=== PATIENT | male | born 1965 | race Asian ===

== ENCOUNTER 2020-07-13 04:58 | Inpatient (IN) | payer OTHER ==
--- NOTE | 2020-07-13 05:04 | PDOC ---
Attending Attestation - Resident Resident Name: Hayes Silverio - ED Attending Attestation I have performed the following: I have examined & evaluated the patient, The case was reviewed & discussed with the resident, I agree w/resident's findings & plan - HPI HPI: 07/13/20 06:25 see resident hpi - Physicial Exam PE: 07/13/20 06:25 see resident exam - Medical Decision Making 07/13/20 06:25 54-year-old male with large squamous cell carcinoma, invasive involving the left facial structures status post admission for Klebsiella bacteremia sepsis with PICC line in place Patient currently on ertapenem, sent in initially for dislodged G-tube but found to have a rectal temperature of greater than [address] removed without incident and G-tube replaced at the bed side Sepsis evaluation initiated, will sign case out to dayshift pending admission Discharge - Discharge Information Problems reviewed: Yes Clinical Impression/Diagnosis: PEG (percutaneous endoscopic gastrostomy) adjustment/replacement/removal, Sepsis Condition: Fair - Follow up/Referral Referrals: Jared López MD [Primary Care Provider] - - Patient Discharge Instructions - Post Discharge Activity
[2020-07-13] MEDS ORDERED: SODIUM CHLORIDE IV ONE (05:29)
[2020-07-13] MEDS ORDERED: CEFEPIME HCL/D5W 1 GM/50 ML BAG IVPB ONE (05:30)
[2020-07-13] MEDS ORDERED: VANCOMYCIN 1 GM in D5W (PRE-DOCKED) 1,000 MG/250 ML IVPB ONE (05:30)
[2020-07-13] MEDS ORDERED: ACETAMINOPHEN 1000 MG/100 ML VIAL (NON FORMULARY) IVPB ONE (05:33)
--- NOTE | 2020-07-13 05:48 | PDOC ---
History of Present Illness - General Chief Complaint: G Tube Problem Stated Complaint: PEG TUBE OUT Time Seen by Provider: 07/13/20 05:01 History Source: [facility] Exam Limitations: Clinical Condition - History of Present Illness Initial Comments: 07/13/20 05:34 54M PMH SCC complicated by open wound of the left face, sepsis currently w/ PICC on Ertapenem (started on 06/26/20 due to continue through 07/18/20), recently discharged from [facility] to [facility] 07/07/20, trach'd BIBEMS to this ED after pt pulled out PEG tube (18Fr) placed and confirmed on 03/21/20. LA placed nails into stoma as placeholder. Hx per EMS report and accompanying documents. Per EMS report, normal SBP ranging from 75-90s; currently SBP 76 with 1L NS bolus en route. Pt has chronic bleeding/oozing around the mouth. Pt is nonverbal and unable to provide information. Found to be febrile to 101F rectally on triage. Full code. NKA. Past History - Medical History Allergies/Adverse Reactions: Allergies Allergy/AdvReac Type Severity Reaction Status Date / Time No Known Allergies Allergy Verified 07/13/20 05:16 Home Medications: Ambulatory Orders Acetaminophen 325 mg PO QID PRN 07/13/20 Cholecalciferol (Vitamin D3) [Vitamin D3 -] 2.5 ml GT DAILY 07/13/20 Ertapenem Sodium [Invanz] 1 gm IJ DAILY 07/13/20 Erythromycin 0.5% Eye Ointment [Erythromycin 0.5% Eye Ointment -] 1 applic OS Q4 H 07/13/20 Famotidine [Pepcid] 2 ml PO Q12H 07/13/20 Heparin - 5,000 units IJ Q8H 07/13/20 Ipratropium 0.02% Nebulizer [Atrovent 0.02% Nebulizer -] 2.5 ml NEB Q6H 07/13/20 Metoprolol Tartrate 25 mg PO Q6H 07/13/20 Miconazole Nitrate [Miconazole Nitrate -] 1 applic TP BID 07/13/20 Nystatin Cream [Mycostatin Cream -] 1 applic TP BID 07/13/20 Oxycodone HCl [Roxicodone] 1 tablet PO Q8H 07/13/20 metroNIDAZOLE 0.75% GEL [Metrogel 0.75% Gel -] 1 appful TP Q12H 07/13/20 oxyCODONE HCL [Oxycodone HCl] 5 ml PO QID 07/13/20 - Psycho-Social/Smoking History Smoking History: Unknown if ever smoked - Substance Abuse Hx (Audit-C & DAST Scrn) How often the patient has a drink containing alcohol: Never Score: In Men: 4 or > Positive; In Women: 3 or > Positive: 0 Screen Result (Pos requires Nsg. Audit-10AR): Negative In the last yr the pt used illegal drug/Rx for NonMed reason: No Score: Yes response is considered Positive: 0 Screen Result (Positive result requires Nsg. DAST-10): Negative Review of Systems - Review of Systems Able to Perform ROS?: No *Physical Exam - Vital Signs Last Vital Signs Temp Pulse Resp BP Pulse Ox 101.0 F H 95 H 18 79/58 L 100 07/13/20 04:59 07/13/20 04:59 07/13/20 04:59 07/13/20 04:59 07/13/20 04:59 - Physical Exam GEN: Ill appearing, awake HEENT: Large mass involving the left face and left eye covered with abd pain. Oozing of blood around the mouth. Supple neck w/ FROM. CV: S1/S2 LUNG: mechanically ventilated GI: Nails catheter inserted into PEG stoma. nondistended MSK: contractures of the UE and LEs SKIN: Warm, dry, no rashes appreciated. PSYCH: awake, nonverbal, does not follow commands NEURO: moving arms. ED Treatment Course - LABORATORY CBC & Chemistry Diagram: 07/14/20 05:30 07/14/20 05:30 - RADIOLOGY Radiology Studies Ordered: Category Date Time Status ABDOMEN-KUB FLAT PLATE [RAD] Stat Radiology 07/13/20 05:32 Ordered CHEST X-RAY PORTABLE* [RAD] Stat Radiology 07/13/20 05:29 Ordered Medical Decision Making - Medical Decision Making 54M PMH SCC of head complicated by left face open wound, sepsis w/ PICC on ertapenum BIBEMS for PEG displacement. Trach'd, PEG'd. sepsis w/u 18Fr PEG replaced AXR to confirm PEG placement broadening abx coverage from ertepenam to vanc. and cefepime ICU c/s 07/13/20 06:36 EKG 06:35 HR 87 NSR intervals and axis nl, biphasic T wave in V2, TWI V1 labs reviewed Discharge - Discharge Information Problems reviewed: Yes Clinical Impression/Diagnosis: PEG (percutaneous endoscopic gastrostomy) adjustment/replacement/removal, Sepsis, Lactic acidosis, Squamous cell carcinoma, Hypernatremia Condition: Fair Disposition: OTHER HEALTHCARE NOT DEFINED - Admission Yes - Follow up/Referral - Patient Discharge Instructions - Post Discharge Activity
[2020-07-13] MEDS ORDERED: ACETAMINOPHEN INJECTION 100 ML IVPB ONE (05:53)
[2020-07-13] MEDS ORDERED: VANCOMYCIN 1 GRAM (PRE-DOCKED) 1,000 MG/250 ML BAG IVPB ONE (05:53)
[2020-07-13] MEDS ORDERED: CEFEPIME 1 GM/100 ML BAG IVPB ONE (05:54)
[2020-07-13 06:14] LABS: ACTIVATED PTT 29.1 SECONDS (25.2-36.5)
[2020-07-13 06:22] LABS: ALBUMIN 1.2 g/dl (3.4-5.0); BILIRUBIN,TOTAL 0.2 mg/dL (0.2-1); BLOOD UREA NITROGEN 48.8 mg/dL (7-18); CALCIUM 9.1 mg/dL (8.5-10.1); CREATININE 1.5 mg/dL (0.55-1.3); POTASSIUM 4.9 mmol/L (3.5-5.1); TOT PROT 7.6 g/dl (6.4-8.2)
[2020-07-13] MEDS ORDERED: SODIUM CHLORIDE 0.45% 1,000 ML IV SCH ×3 (06:30→08:30)
[2020-07-13 06:32] LABS: BASO % 0.6 % (0-2.0); EOS % 4.7 % (0-4.5); HEMATOCRIT 26.9 % (35.4-49); HEMOGLOBIN 8.6 GM/dL (11.7-16.9); LYMPH % 7.9 % (8-40); MCH 28.4 pg (25.7-33.7); MCHC 31.9 g/dl (32.0-35.9); MEAN CELL VOLUME 89.1 fl (80-96); MEAN PLT VOLUME 9.4 fl (7.5-11.1); MONO % 8.9 % (3.8-10.2); NEUT % 77.9 % (42.8-82.8); PLATELET COUNT 321 K/MM3 (134-434); RBC 3.02 M/mm3 (4.00-5.60); WHITE BLOOD COUNT 11.4 K/mm3 (4.0-10.0)
[2020-07-13 06:38] LABS: EPI CELLS 21 /uL (0-25.1); HYALINE CASTS 2 /uL (0-3.1); PH,URINE 8.5 (5.0-8.0); URINE APPEARANCE CLEAR; URINE BACTERIA 7 /uL (0-1359); URINE BILIRUBIN NEGATIVE (NEGATIVE); URINE COLOR YELLOW; URINE GLUCOSE (UA) NEGATIVE (NEGATIVE); URINE KETONE NEGATIVE (NEGATIVE); URINE LEUK ESTERASE NEGATIVE (NEGATIVE); URINE NITRITE NEGATIVE (NEGATIVE); URINE PROTEIN 2+ (NEGATIVE); URINE RBC 8 /uL (0-23.9); URINE UROBILINOGEN 0.2 mg/dL (0.2-1.0); URINE WBC 20 /uL (0-25.8)
[2020-07-13 07:10] LABS: INR 1.09 (0.83-1.09); PROTHROMBIN TIME (PATIENT) 12.9 SEC (9.7-13.0)
--- NOTE | 2020-07-13 07:53 | PDOC ---
*Physical Exam - Vital Signs Last Vital Signs Temp Pulse Resp BP Pulse Ox 101.0 F H 86 17 84/62 L 99 07/13/20 04:59 07/13/20 06:40 07/13/20 06:40 07/13/20 06:40 07/13/20 07:15 ED Treatment Course - LABORATORY CBC & Chemistry Diagram: 07/13/20 05:40 07/13/20 05:40 - ADDITIONAL ORDERS Additional order review: Laboratory Results 07/13/20 07/13/20 07/13/20 06:20 05:40 05:40 WBC RBC Hgb Hct MCV MCH MCHC RDW Plt Count MPV Absolute Neuts (auto) Neutrophils % Lymphocytes % Monocytes % Eosinophils % Basophils % Nucleated RBC % PT with INR INR PTT (Actin FS) Sodium 153 H Potassium 4.9 Chloride 123 H Carbon Dioxide 26 Anion Gap 4 L BUN 48.8 H Creatinine 1.5 H Est GFR (CKD-EPI)AfAm 59.88 Est GFR (CKD-EPI)NonAf 51.67 Random Glucose 98 Lactic Acid 2.3 H* Calcium 9.1 Total Bilirubin 0.2 AST 21 ALT 16 Alkaline Phosphatase 145 H Troponin I 0.04 Total Protein 7.6 Albumin 1.2 L Urine Color Yellow Urine Appearance Clear Urine pH 8.5 H Ur Specific [place] 1.015 Urine Protein 2+ H Urine Glucose (UA) Negative Urine Ketones Negative Urine Blood Negative Urine Nitrite Negative Urine Bilirubin Negative Urine Urobilinogen 0.2 Ur Leukocyte Esterase Negative Urine WBC (Auto) 20 Urine RBC (Auto) 8 Urine Casts (Auto) 2 U Epithel Cells (Auto) 21 Urine Bacteria (Auto) 7 07/13/20 07/13/20 05:40 05:40 WBC 11.4 H RBC 3.02 L Hgb 8.6 L Hct 26.9 L MCV 89.1 MCH 28.4 MCHC 31.9 L RDW 17.0 H Plt Count 321 MPV 9.4 Absolute Neuts (auto) 8.9 H Neutrophils % 77.9 Lymphocytes % 7.9 L Monocytes % 8.9 Eosinophils % 4.7 H Basophils % 0.6 Nucleated RBC % 0 PT with INR 12.90 INR 1.09 PTT (Actin FS) 29.1 Sodium Potassium Chloride Carbon Dioxide Anion Gap BUN Creatinine Est GFR (CKD-EPI)AfAm Est GFR (CKD-EPI)NonAf Random Glucose Lactic Acid Calcium Total Bilirubin AST ALT Alkaline Phosphatase Troponin I Total Protein Albumin Urine Color Urine Appearance Urine pH Ur Specific [place] Urine Protein Urine Glucose (UA) Urine Ketones Urine Blood Urine Nitrite Urine Bilirubin Urine Urobilinogen Ur Leukocyte Esterase Urine WBC (Auto) Urine RBC (Auto) Urine Casts (Auto) U Epithel Cells (Auto) Urine Bacteria (Auto) 07/13/20 05:40 RBC 3.02 L MCV 89.1 MCHC 31.9 L RDW 17.0 H MPV 9.4 Neutrophils % 77.9 Lymphocytes % 7.9 L Monocytes % 8.9 Eosinophils % 4.7 H Basophils % 0.6 - Medications Given in the ED: ED Medications Discontinued Medications Generic Name Dose Route Start Last Admin Trade Name Freq PRN Reason Stop Dose Admin Acetaminophen 1,000 mg 07/13/20 05:33 07/13/20 06:10 Ofirmev Injection - IVPB 07/13/20 05:34 1,000 mg ONCE ONE Administration Sodium Chloride 1,053 mls @ 526.5 mls/hr 07/13/20 05:29 07/13/20 06:30 Normal Saline - 30 ml/kg infuse over 2 hr (1053 ml) 07/13/20 07:28 Not Given IV ONCE ONE Cefepime HCl 1 gm in 50 mls @ 100 mls/hr 07/13/20 05:30 07/13/20 06:15 Maxipime 1 Gm Premix Ivpb IVPB 07/13/20 05:59 100 mls/hr ONCE ONE Administration Vancomycin HCl 1,000 mg 07/13/20 05:30 07/13/20 07:22 Vancomycin (Pre-Docked) IVPB 07/13/20 05:31 1,000 mg ONCE ONE Administration Protocol Medical Decision Making - Medical Decision Making 07/13/20 07:52 Vital Signs Temp Pulse Resp BP Pulse Ox 101.0 F H 86 17 84/62 L 99 07/13/20 04:59 07/13/20 06:40 07/13/20 06:40 07/13/20 06:40 07/13/20 07:[address] pt signed out [address] Dr Delgado, at 7AM pending ICU eval in summary, 54M PMH SCC complicated by open wound of the left face, sepsis currently w/ PICC on Ertapenem (started on 06/26/20 due to continue through 07/18/20), recently discharged from [facility] to [facility] 07/07/20, trach'd BIBEMS to this ED after pt pulled out PEG tube (18Fr) placed and confirmed on 03/21/20. Per EMS report, normal SBP ranging from 75-90s; currently SBP 76 with 1L NS bolus en route. Pt has chronic bleeding/oozing around the mouth. Pt is nonverbal and unable to provide information. Found to be febrile to 101F rectally on triage. Full code. labs and lytes with hyponatremia, RAJAT dehydration on 2nd liter of fluids 1/2NS (s/p 1L with EMS). BP still hypotensive IV cefepime and vancomycin for empiric coverage severe sepsis with lactic acidosis 2.3, will recheck after fluids 1/2 normal saline tylenol for fever, recheck. AXR done, confirmed placement of the G tube. ICU bed for close monitoring, septic shock, IV abx administerred full code status. admit to Dr López, spoke over the phone regarding care, impression and plan and higher level of care. 07/13/20 07:53 07/13/20 08:28 Discharge - Discharge Information Problems reviewed: Yes Clinical Impression/Diagnosis: PEG (percutaneous endoscopic gastrostomy) adjustment/replacement/removal, Sepsis, Lactic acidosis, Squamous cell carcinoma, Hypernatremia Condition: Fair - Admission Yes - Follow up/Referral - Patient Discharge Instructions - Post Discharge Activity
[2020-07-13] MEDS ORDERED: ACETAMINOPHEN 650 MG/20.3 ML ORAL SOLUTION (CUPS) PO PRN (08:08)
[2020-07-13] MEDS ORDERED: LACTATED RINGERS SOLUTION 1,000 ML/1,000 ML INFUS.BAG IV SCH (08:30)
[2020-07-13] MEDS: SODIUM CHLORIDE 0.45% 1,000 ML IV SCH (08:42)
--- NOTE | 2020-07-13 09:09 | CONSULT ---
Consultation: REQUESTING PROVIDER: CONSULT REQUEST: We have been asked to medically evaluate this patient for ICU admission HISTORY OF PRESENT ILLNESS: HPI collected from [facility] records and adira paperwork: 54-year-old male with PMHx of RA & large invasive squamous cell carcinoma, involving the left facial structures s/p admission ([facility]) for Klebsiella bacteremia sepsis with PICC line in place (07/02/20) currently on ertapenem. S/p trach & peg 02/2020. Patient was originally being brought to ED for dislodged G-tube but found to have a rectal temperature of greater than 101, and hypotension. Nails catheter in place removed without incident and G-tube replaced at the bedside in ED. Patient currently awake but non responsive, but that's his baseline. REVIEW OF SYSTEMS: Unable to assess CONSTITUTIONAL: Absent: fever, chills, diaphoresis, generalized weakness, malaise, loss of appetite, weight change HEENT: Absent: rhinorrhea, nasal congestion, throat pain, throat swelling, difficulty swallowing, mouth swelling, ear pain, eye pain, visual changes CARDIOVASCULAR: Absent: chest pain, syncope, palpitations, irregular heart rate, lightheadedness, peripheral edema RESPIRATORY: Absent: cough, shortness of breath, dyspnea with exertion, orthopnea, wheezing, stridor, hemoptysis GASTROINTESTINAL: Absent: abdominal pain, abdominal distension, nausea, vomiting, diarrhea, constipation, melena, hematochezia GENITOURINARY: Absent: dysuria, frequency, urgency, hesitancy, hematuria, flank pain, genital pain MUSCULOSKELETAL: Absent: myalgia, arthralgia, joint swelling, back pain, neck pain SKIN: Absent: rash, itching, pallor HEMATOLOGIC/IMMUNOLOGIC: Absent: easy bleeding, easy bruising, lymphadenopathy, frequent infections ENDOCRINE: Absent: unexplained weight gain, unexplained weight loss, heat intolerance, cold intolerance NEUROLOGIC: Absent: headache, focal weakness or paresthesias, dizziness, unsteady gait, seizure, mental status changes, bladder or bowel incontinence PSYCHIATRIC: Absent: anxiety, depression, suicidal or homicidal ideation, hallucinations. PHYSICAL EXAMINATION Vital Signs - 24 hr 07/13/20 07/13/20 07/13/20 04:59 05:30 05:54 Temperature 101.0 F H Pulse Rate 95 H Pulse Rate [ Left Radial] Respiratory 18 24 H Rate Blood Pressure 79/58 L Blood Pressure [Right Arm] O2 Sat by Pulse 100 100 100 Oximetry (%) 07/13/20 07/13/20 07/13/20 06:40 07:15 08:47 Temperature Pulse Rate Pulse Rate [ 86 74 Left Radial] Respiratory 17 Rate Blood Pressure Blood Pressure 84/62 L 95/63 [Right Arm] O2 Sat by Pulse 99 99 99 Oximetry (%) GENERAL: Awake, no oriented, non responsive/nonverbal HEAD: Normal with no signs of trauma. EYES: PERRL ENT: Large facial lesion encompassing almost entire left side of face with blood NECK: tach in place LUNGS: on ventilator, harsh inhalation breath sounds appreciated HEART: RRR ABDOMEN: Soft, peg in place, emaciated MUSCULOSKELETAL: extremely emaciated EXTREMITIES: muscle wasting, contracted NEUROLOGICAL: unable to fully assess SKIN: no rashes or lesions noted. Laboratory Results - last 24 hr 07/13/20 07/13/20 07/13/20 05:40 05:40 05:40 WBC 11.4 H RBC 3.02 L Hgb 8.6 L Hct 26.9 L MCV 89.1 MCH 28.4 MCHC 31.9 L RDW 17.0 H Plt Count 321 MPV 9.4 Absolute Neuts (auto) 8.9 H Neutrophils % 77.9 Lymphocytes % 7.9 L Monocytes % 8.9 Eosinophils % 4.7 H Basophils % 0.6 Nucleated RBC % 0 PT with INR 12.90 INR 1.09 PTT (Actin FS) 29.1 Sodium 153 H Potassium 4.9 Chloride 123 H Carbon Dioxide 26 Anion Gap 4 L BUN 48.8 H Creatinine 1.5 H Est GFR (CKD-EPI)AfAm 59.88 Est GFR (CKD-EPI)NonAf 51.67 Random Glucose 98 Lactic Acid Calcium 9.1 Total Bilirubin 0.2 AST 21 ALT 16 Alkaline Phosphatase 145 H Troponin I 0.04 Total Protein 7.6 Albumin 1.2 L Urine Color Urine Appearance Urine pH Ur Specific [place] Urine Protein Urine Glucose (UA) Urine Ketones Urine Blood Urine Nitrite Urine Bilirubin Urine Urobilinogen Ur Leukocyte Esterase Urine WBC (Auto) Urine RBC (Auto) Urine Casts (Auto) U Epithel Cells (Auto) Urine Bacteria (Auto) 07/13/20 07/13/20 05:40 06:20 WBC RBC Hgb Hct MCV MCH MCHC RDW Plt Count MPV Absolute Neuts (auto) Neutrophils % Lymphocytes % Monocytes % Eosinophils % Basophils % Nucleated RBC % PT with INR INR PTT (Actin FS) Sodium Potassium Chloride Carbon Dioxide Anion Gap BUN Creatinine Est GFR (CKD-EPI)AfAm Est GFR (CKD-EPI)NonAf Random Glucose Lactic Acid 2.3 H* Calcium Total Bilirubin AST ALT Alkaline Phosphatase Troponin I Total Protein Albumin Urine Color Yellow Urine Appearance Clear Urine pH 8.5 H Ur Specific [place] 1.015 Urine Protein 2+ H Urine Glucose (UA) Negative Urine Ketones Negative Urine Blood Negative Urine Nitrite Negative Urine Bilirubin Negative Urine Urobilinogen 0.2 Ur Leukocyte Esterase Negative Urine WBC (Auto) 20 Urine RBC (Auto) 8 Urine Casts (Auto) 2 U Epithel Cells (Auto) 21 Urine Bacteria (Auto) 7 Active Medications Generic Name Dose Route Start Last Admin Trade Name Freq PRN Reason Stop Dose Admin Acetaminophen 650 mg 07/13/20 08:08 Tylenol Oral Solution - PO Q4H PRN FEVER Chlorhexidine Gluconate 1 applic 07/13/20 22:00 Hibiclens For Decolonization - TP HS SHARLA Heparin Sodium (Porcine) 5,000 unit 07/13/20 10:00 Heparin - SQ BID SHARLA Sodium Chloride 1,000 mls @ 125 mls/hr 07/13/20 08:31 07/13/20 08:42 1/2 Normal Saline IV 125 mls/hr ASDIR SHARLA Administration Mupirocin 1 applic 07/13/20 10:00 Bactroban Ointment (For Decolonization) - NS 07/18/20 09:59 BID SHARLA CXR: A single view of the chest has been submitted. Since 09/04/2017, the patient is rotated to the left. There is a left patchy infiltrate, prominent mediastinum, tracheostomy tube and left subclavian line with tip in the atrium heading toward the IVC. There is no sign of a pneumothorax. The right lung is clear. The angles are sharp. The bones and soft tissues are intact. Correlation recommended. ASSESSMENT/PLAN: 54-year-old male with PMHx of RA & large invasive squamous cell carcinoma, presented to the ED with dislodged peg tube, was also found to be hypotensive and febrile. Admitted to ICU for septic shock, likely 2/2 infection of facial wound/SCC, vs other infectious causes (picc, nails, trach, peg) Neuro - awake - baseline nonverbal Pulm - possible L patchy infiltrate, likely 2/2 PNA - sputum cultures - give atbx coverage for HAP in ED - on ventilator - maintain sat > 93% Cardio - hypotensive, patient baseline 90/60s - getting IVF - EF 55-60 % (02/2020) Heme/Onc - hx stage 4 oral cavily SCC involving L orbit s/p IR embolization at [facility] s/p multi drug chemo s/p palliative radiation in March medical records in chart - hx anemia ID - picc line currently on ertapenem - 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 Phelps consulted - monitor I&Os GI - peg dislodged and replaced in ED FEN - monitor and replete electrolytes - IVF - NPO for now DVT PPX - Sq heparin TID GI PPX - protonix iv daily Visit type - Emergency Visit Emergency Visit: Yes ED Registration Date: 07/13/20 Care time: The patient presented to the Emergency Department on the above date and was hospitalized for further evaluation of their emergent condition. - New Patient This patient is new to me today: Yes Date on this admission: 07/13/20 - Critical Care Critical Care patient: Yes Total Critical Care Time (in minutes): 36 Critical Care Statement: The care of this patient involved high complexity decision making to prevent further life threatening deterioration of the patient's condition and/or to evaluate & treat vital organ system(s) failure or risk of failure. ATTENDING PHYSICIAN STATEMENT I saw and evaluated the patient. I reviewed the resident's note and discussed the case with the resident. I agree with the resident's findings and plan as documented. SUBJECTIVE: OBJECTIVE: ASSESSMENT AND PLAN:
--- NOTE | 2020-07-13 09:22 | CONSULT ---
Consult Consult Specialty:: Nephrology Reason for Consultation:: RAJAT and hypernatremia - History of Present Illness Chief Complaint: sent in for dislodged g-tube History of Present Illness: Pt is a 54 year old man with pmhx of large invasive squamous cell ca involving his left face who was sent in for dislodged g-tube. He was found to have elevated manager action and sodium. He is awake but not interactive. He was recently treated for Klebsiell abactermia on NYP. I saw the patient with the ICU team at bedside. - History Source History Provided By: Medical Record - Past Medical History Pulmonary: Yes: Other (chronic resp failure) Heme/Onc: Yes: Other (squamous cell ca) - Smoking History Smoking history: Unknown if ever smoked Home Medications - Allergies Allergies/Adverse Reactions: Allergies Allergy/AdvReac Type Severity Reaction Status Date / Time No Known Allergies Allergy Verified 07/13/20 05:16 - Home Medications Home Medications: Ambulatory Orders Acetaminophen 325 mg PO QID PRN 07/13/20 Cholecalciferol (Vitamin D3) [Vitamin D3 -] 2.5 ml GT DAILY 07/13/20 Ertapenem Sodium [Invanz] 1 gm IJ DAILY 07/13/20 Erythromycin 0.5% Eye Ointment [Erythromycin 0.5% Eye Ointment -] 1 applic OS Q4H 07/13/20 Famotidine [Pepcid] 2 ml PO Q12H 07/13/20 Heparin - 5,000 units IJ Q8H 07/13/20 Ipratropium 0.02% Nebulizer [Atrovent 0.02% Nebulizer -] 2.5 ml NEB Q6H 07/13/20 Metoprolol Tartrate 25 mg PO Q6H 07/13/20 Miconazole Nitrate [Miconazole Nitrate -] 1 applic TP BID 07/13/20 Nystatin Cream [Mycostatin Cream -] 1 applic TP BID 07/13/20 Oxycodone HCl [Roxicodone] 1 tablet PO Q8H 07/13/20 metroNIDAZOLE 0.75% GEL [Metrogel 0.75% Gel -] 1 appful TP Q12H 07/13/20 oxyCODONE HCL [Oxycodone HCl] 5 ml PO QID 07/13/20 Family Medical History Family History: Unable to Obtain Review of Systems Unable to obtain ROS, reason: not verbal Physical Exam Vital Signs: Vital Signs Temperature 101.0 F H 07/13/20 04:59 Pulse Rate 74 07/13/20 08:47 Respiratory Rate 17 07/13/20 06:40 Blood Pressure 95/63 07/13/20 08:47 O2 Sat by Pulse Oximetry (%) 99 07/13/20 08:47 Constitutional: Yes: Calm, Cachectic HENT: Yes: Other (left face invasive squamous call ca) Respiratory: Yes: Mechanically Ventilated Gastrointestinal: Yes: Soft. No: Other (peg) Renal/: Yes: Carrizales Present Musculoskeletal: Yes: Muscle Weakness Neurological: Yes: Other (awake but non responsive) Labs: CBC, BMP 07/13/20 05:40 07/13/20 05:40 Imaging - Results Chest X-ray: Report Reviewed Problem List - Problems (1) Bacteremia due to Klebsiella pneumoniae Code(s): R78.81 - BACTEREMIA; B96.1 - KLEBSIELLA PNEUMONIAE THE CAUSE OF DISEASES CLASSD [id number] (2) Hypernatremia Code(s): E87.0 - HYPEROSMOLALITY AND HYPERNATREMIA (3) PEG (percutaneous endoscopic gastrostomy) adjustment/replacement/removal Code(s): Z43.1 - ENCOUNTER FOR ATTENTION TO GASTROSTOMY (4) Squamous cell carcinoma Code(s): LKE4541 - Assessment/Plan Current Medications Generic Name Dose Route Start Last Admin Trade Name Freq PRN Reason Stop Dose Admin Acetaminophen 650 mg 07/13/20 08:08 Tylenol Oral Solution - PO Q4H PRN FEVER Chlorhexidine Gluconate 1 applic 07/13/20 22:00 Hibiclens For Decolonization - TP HS SHARLA Heparin Sodium (Porcine) 5,000 unit 07/13/20 10:00 Heparin - SQ BID SHARLA Sodium Chloride 1,000 mls @ 125 mls/hr 07/13/20 08:31 07/13/20 08:42 1/2 Normal Saline IV 125 mls/hr ASDIR SHARLA Administration Mupirocin 1 applic 07/13/20 10:00 Bactroban Ointment (For Decolonization) - NS 07/18/20 09:59 BID SHARLA Impression 1. rajat 2. hypernatremia 3. recent kleb bacteremia 4. squamous cell cancer 5. lactic acidosis 6. resp failure on trache Plan - cont 1/2 ns - follow repeat labs - abx per medical team - cont vent support - discussed with ICU team at bedside - discuss GOC with family - follow urine lytes and manager action
--- NOTE | 2020-07-13 09:37 | CON.ID ---
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- just discharged on 07/08 from [facility] to the [place]- sent to ED for disclodged gt tube, found to have rectal temp of 101 PMH per discharge from [facility] cancer- s/p 2 cycles chem last 03/18 didnot tolerate, felt by onc not to be a candidate for further cancer directed therapy repeat head and neck ct no significant change but with extensive invasion of l eft orbit and jawline s/p IR embolizatin of extra carotid branch (profuse tumor bleeding), s/p palli ative RT recurrent infection / pneumonia (MSSA, Citrobacter, Acinetobacter) anemia recent MDR klebsiella bacteremiia felt to be secondary to picc line (removed and replaced)-picc replaced on 07/02 -to continue ertapenem until 07/18 was in septic shock there requiring pressors for several days nails catheter and GT replaced in the ED trach to vent - History Source History Provided By: Medical Record Limitations to Obtaining History: Clinical Condition - Past Medical History Rheumatology: Yes: Rheumatoid Arthritis - Smoking History Smoking history: Unknown if ever smoked - Social History Usual Living Arrangement: Jail ADL: Support Services History of Recent Travel: No Home Medications - Allergies Allergies/Adverse Reactions: Allergies Allergy/AdvReac Type Severity Reaction Status Date / Time No Known Allergies Allergy Verified 07/13/20 05:16 - Home Medications Home Medications: Ambulatory Orders Acetaminophen 325 mg PO QID PRN 07/13/20 Cholecalciferol (Vitamin D3) [Vitamin D3 -] 2.5 ml GT DAILY 07/13/20 Ertapenem Sodium [Invanz] 1 gm IJ DAILY 07/13/20 Erythromycin 0.5% Eye Ointment [Erythromycin 0.5% Eye Ointment -] 1 applic OS Q4H 07/13/20 Famotidine [Pepcid] 2 ml PO Q12H 07/13/20 Heparin - 5,000 units IJ Q8H 07/13/20 Ipratropium 0.02% Nebulizer [Atrovent 0.02% Nebulizer -] 2.5 ml NEB Q6H 07/13/20 Metoprolol Tartrate 25 mg PO Q6H 07/13/20 Miconazole Nitrate [Miconazole Nitrate -] 1 applic TP BID 07/13/20 Nystatin Cream [Mycostatin Cream -] 1 applic TP BID 07/13/20 Oxycodone HCl [Roxicodone] 1 tablet PO Q8H 07/13/20 metroNIDAZOLE 0.75% GEL [Metrogel 0.75% Gel -] 1 appful TP Q12H 07/13/20 oxyCODONE HCL [Oxycodone HCl] 5 ml PO QID 07/13/20 Family Medical History Family History: Unable to Obtain Review of Systems Unable to obtain ROS, reason: unable to obtain Physical Exam Vital Signs: Vital Signs Temperature 101.0 F H 07/13/20 04:59 Pulse Rate 74 07/13/20 08:47 Respiratory Rate 17 07/13/20 06:40 Blood Pressure 95/63 07/13/20 08:47 O2 Sat by Pulse Oximetry (%) 99 07/13/20 08:47 Constitutional: Yes: No Distress, Cachectic HENT: Yes: Other (large fungating mass left face extending from jaw to eye, multiple ulcerations) Neck: Yes: Other (trach to vent) Cardiovascular: Yes: Regular Rate and Rhythm Respiratory: Yes: CTA Bilaterally Gastrointestinal: Yes: Normal Bowel Sounds, Soft, Other (gt, no distention) ...Rectal Exam: Yes: Deferred Extremities: Yes: Other (picc line no erythema, no drainage noted) Edema: No Labs: CBC, BMP 07/13/20 05:40 07/13/20 05:40 cultures pending lactic acid 2.3 Imaging - Results Chest X-ray: Report Reviewed, Image Reviewed (left sided infiltrate) Problem List - Problems (1) Squamous cell carcinoma Code(s): SQL4635 - (2) PEG (percutaneous endoscopic gastrostomy) adjustment/replacement/removal Code(s): Z43.1 - ENCOUNTER FOR ATTENTION TO GASTROSTOMY (3) Pneumonia Code(s): J18.9 - PNEUMONIA, UNSPECIFIED ORGANISM (4) Bacteremia due to Klebsiella pneumoniae Code(s): R78.81 - BACTEREMIA; B96.1 - KLEBSIELLA PNEUMONIAE THE CAUSE OF DISEASES CLASSD ELSWHR Assessment/Plan fever- no way to know if cxray findings are old or new-per d/c from [facility] he has had multiple episodes of pneumonia this year agree with cultures continue vancomycin to cover for picc line infection- d/c picc if blood cultures are positive escalated to meropenem for both kleb MRS and pseudomonal coverage check vancomycin level in am palliative care re-eval- per d/c from [facility] family is aware no pirimary oncologic intervention is possible but are requesting all other aggressive care over 40 minutes spent reviewing d/c note and meds from [place]
--- NOTE | 2020-07-13 09:58 | EKG ---
Test Reason : Blood Pressure : / mmHG Vent. Rate : 087 BPM Atrial Rate : 087 BPM P-R Int : 116 ms QRS Dur : 068 ms QT Int : 360 ms P-R-T Axes : 063 050 097 degrees QTc Int : 433 ms NORMAL SINUS RHYTHM NONSPECIFIC ST AND T WAVE ABNORMALITY ABNORMAL ECG NO PREVIOUS ECGS AVAILABLE Confirmed by Cas Florez ([id number]) on 07/13/2020 9:58:10 AM Referred By: Confirmed By:Cas Florez
[2020-07-13] MEDS: HEPARIN NA (PORCINE) 5,000 UNITS/ML 1ML VIAL SQ SCH ×2 (11:57→23:34)
[2020-07-13] MEDS: PANTOPRAZOLE SODIUM 40 MG VIAL IVPUSH SCH (11:57)
[2020-07-13] MEDS ORDERED: SODIUM CHLORIDE 1,000 ML IV STA (12:18)
--- NOTE | 2020-07-13 12:20 | PN ---
Teaching Attending Note Name of Resident: Gem Ruffin ATTENDING PHYSICIAN STATEMENT I saw and evaluated the patient. I reviewed the resident's note and discussed the case with the resident. I agree with the resident's findings and plan as documented. SUBJECTIVE: Pt seen and examined in the ICU. Vented, awake but not following commands. Remains hypotensive, being bolused. Vented on 40% FiO2, PEEP 5. OBJECTIVE: Vital Signs Period Temp Pulse Resp BP Sys/Britt Pulse Ox Last 24 Hr 98.9 F-101.0 F 66-95 12-24 79-95/42-63 99-100 Intake & Output 07/10/20 07/11/20 07/12/20 07/13/20 23:59 23:59 23:59 23:59 Intake Total 1475 Balance 1475 Weight 36.3 kg Gen: vented, awake Heart: RRR Lung: decreased breath sounds at the bases Abd: soft, nontender Ext: no edema CBC, BMP 07/13/20 05:40 07/13/20 05:40 Active Medications Acetaminophen (Tylenol Oral Solution -) 650 mg PO Q4H PRN PRN Reason: FEVER Chlorhexidine Gluconate (Hibiclens For Decolonization -) 1 applic TP HS [facility] Heparin Sodium (Porcine) (Heparin -) 5,000 unit SQ BID [facility] Last Admin: 07/13/20 11:57 Dose: 5,000 unit Documented by: Sodium Chloride (1/2 Normal Saline) 1,000 mls @ 125 mls/hr IV ASDIR [facility] Last Admin: 07/13/20 08:42 Dose: 125 mls/hr Documented by: Meropenem 1 gm/ Dextrose 100 mls @ 0 mls/hr IVPB Q12H [facility] Mupirocin (Bactroban Ointment (For Decolonization) -) 1 applic NS BID [facility] Stop: 07/18/20 09:59 Pantoprazole Sodium (Protonix Iv) 40 mg IVPUSH DAILY [facility] Last Admin: 07/13/20 11:57 Dose: 40 mg Documented by: ASSESSMENT AND PLAN: r/o Pneumonia vs Soft Tissue Infection Severe Sepsis Acute Kidney Injury Lactic Acidosis Recent Klebsiella Bacteremia Locally Advanced Facial Squamous Cell Ca Chronic Respiratory Failure Hypernatremia Anemia - IV antibiotics - f/u cultures - IVF - monitor urine output, creatinine - trend lactate - may need pressors if BP does not improve with IVF - free water replacement once hemodynamically stable - continue volume assist control - enteral feeds after confirming PEG placement - DVT/GI prophylaxis - continue ICU monitoring for now
[2020-07-13] MEDS ORDERED: DEXTROSE 5%-WATER 100 ML IVPB ONE ×2 (13:11→23:37)
[2020-07-13] MEDS ORDERED: MEROPENEM 1 GM VIAL (RESTRICTED TO ID) IVPB ONE ×2 (13:11→23:36)
[2020-07-13] MEDS: MEROPENEM 1 GM in DEXTROSE 5%-WATER 100 ML IVPB SCH ×2 (13:12→23:43)
[2020-07-13] MEDS: MUPIROCIN 2% TOPICAL OINTMENT FOR DECOLONIZATION NS SCH ×2 (13:14→22:00)
[2020-07-13 16:44] LABS: ANION GAP 7 MMOL/L (8-16); BLOOD UREA NITROGEN 41.2 mg/dL (7-18); CALCIUM 8.1 mg/dL (8.5-10.1); CHLORIDE 118 mmol/L (98-107); CO2 24 mmol/L (21-32); CREATININE 1.3 mg/dL (0.55-1.3); GLUCOSE,RANDOM 78 mg/dL (74-106); POTASSIUM 4.5 mmol/L (3.5-5.1); SODIUM 149 mmol/L (136-145)
[2020-07-13] MEDS ORDERED: CHLORHEXIDINE GLUCONATE 4% CLEANSER FOR DECOLONIZATION TP SCH (22:00)
[2020-07-14] MEDS ORDERED: SODIUM CHLORIDE 0.45% 500 ML IV SCH (03:15)
[2020-07-14] MEDS ORDERED: DEXTROSE 50%-WATER - 25 GM/50 ML VIAL IVPUSH ONE (05:29)
[2020-07-14] MEDS ORDERED: DEXTROSE 50%-WATER 25 GM/50 ML DISP.SYRIN ONE (06:27)
[2020-07-14 07:11] LABS: BASO % 0.6 % (0-2.0); EOS % 4.8 % (0-4.5); HEMATOCRIT 25.4 % (35.4-49); LYMPH % 8.5 % (8-40); MCH 28.3 pg (25.7-33.7); MCHC 31.7 g/dl (32.0-35.9); MEAN CELL VOLUME 89.5 fl (80-96); MEAN PLT VOLUME 9.5 fl (7.5-11.1); MONO % 4.5 % (3.8-10.2); NEUT % 81.6 % (42.8-82.8); PLATELET COUNT 308 K/MM3 (134-434); RBC 2.83 M/mm3 (4.00-5.60); RDW 17.2 % (11.9-15.9); WHITE BLOOD COUNT 10.6 K/mm3 (4.0-10.0)
[2020-07-14 07:16] LABS: INR 1.12 (0.83-1.09); PROTHROMBIN TIME (PATIENT) 13.2 SEC (9.7-13.0)
[2020-07-14 07:36] LABS: BILIRUBIN,TOTAL 0.4 mg/dL (0.2-1); BLOOD UREA NITROGEN 33.9 mg/dL (7-18); CALCIUM 7.8 mg/dL (8.5-10.1); CREATININE 1.3 mg/dL (0.55-1.3); MAGNESIUM 2.3 mg/dL (1.8-2.4); PHOSPHOROUS 4.2 mg/dL (2.5-4.9); POTASSIUM 4.5 mmol/L (3.5-5.1); TOT PROT 6.2 g/dl (6.4-8.2)
--- NOTE | 2020-07-14 08:41 | HP ---
Admitting History and Physical - Primary Care Physician PCP: Jared López - Admission Chief Complaint: Sepsis. Hypernatremia. Squamous cell ca History of Present Illness: 54 year old male came in to [facility] ER from [facility] for dislodged G tube. Pt also with PICC line with IV Ivanz for Klebsiella bacteremia. 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 Pt treated with Chemo carboplatin/pacltaxel/cetuximab x 2 cycles due to poor tolerance-last cycle 03/18/20- complicated by hospitalization from 03/04/20- 05/16/20 during which he was treated for profusely bleeding tumor requiring IR embolization on 04/27/20 of an extra carotid branch. Pt also received palliative RT x 2 courses completed 04/21/20. Pt was then dc'd to NH with PICC and IV abx. Pt then developed recurrent Pneumonia w/ MSSA, Citrobacter Acinetobacter re- admitted on 06/24/20-06/29/20 to SICU- tx w/ IV Vanco, Zosyn + Azithro + Pressors which were dc'd shortly after. Pt was transfused PRBC fro anemia 2/2 to bleeding tumor. Pt was also + for VRE. Old PICC was removed on 06/24/20 due to + MDR Kleb (PICC tip)- reinserted 07/02/20 During his stay at [facility] Follwing tests were done: Tracheoscopy: Clear trachea CT head/face/neck 06/24/20-Left multi spatial mass unchanged from previous CT done on 06/03/20 CT chest 06/24/20- Small BL R>L pleural effusions, atelectasis vs superimposed pneumonia Last NELL COV 2-06/24/20 not detected Previous noted GOC discussed with family wants everything done despite knowing the prognosis is poor. Pt is not a candidate of further oncology treatments 2/2 to prognosis, inability to tolerate and fragile state History Source: Medical Record Limitations to Obtaining History: Unresponsive - Past Medical History Pulmonary: Yes: Pneumonia, Other (chronic resp failure) Heme/Onc: Yes: Anemia (2/2 to bleedign tumor), Other (Left oral cavity squamous cell ca) Infectious Disease: Yes: VREF, Other (MSSA) Rheumatology: Yes: Rheumatoid Arthritis - Smoking History Smoking history: Unknown if ever smoked - Social History ADL: Support Services History of Recent Travel: No Home Medications - Allergies Allergies/Adverse Reactions: Allergies Allergy/AdvReac Type Severity Reaction Status Date / Time No Known Allergies Allergy Verified 07/13/20 05:16 - Home Medications Home Medications: Ambulatory Orders Acetaminophen 325 mg PO QID PRN 07/13/20 Cholecalciferol (Vitamin D3) [Vitamin D3 -] 2.5 ml GT DAILY 07/13/20 Ertapenem Sodium [Invanz] 1 gm IJ DAILY 07/13/20 Erythromycin 0.5% Eye Ointment [Erythromycin 0.5% Eye Ointment -] 1 applic OS Q4H 07/13/20 Famotidine [Pepcid] 2 ml PO Q12H 07/13/20 Heparin - 5,000 units IJ Q8H 07/13/20 Ipratropium 0.02% Nebulizer [Atrovent 0.02% Nebulizer -] 2.5 ml NEB Q6H 07/13/20 Metoprolol Tartrate 25 mg PO Q6H 07/13/20 Miconazole Nitrate [Miconazole Nitrate -] 1 applic TP BID 07/13/20 Nystatin Cream [Mycostatin Cream -] 1 applic TP BID 07/13/20 Oxycodone HCl [Roxicodone] 1 tablet PO Q8H 07/13/20 metroNIDAZOLE 0.75% GEL [Metrogel 0.75% Gel -] 1 appful TP Q12H 07/13/20 oxyCODONE HCL [Oxycodone HCl] 5 ml PO QID 07/13/20 Family Medical History Family History: Unable to Obtain Review of Systems Unable to obtain ROS, reason: 2/2 to medical condition Physical Examination Vital Signs: Vital Signs Temperature 98.6 F 07/14/20 07:00 Pulse Rate 87 07/14/20 08:09 Respiratory Rate 18 07/14/20 08:09 Blood Pressure 89/58 L 07/14/20 07:00 O2 Sat by Pulse Oximetry (%) 100 07/14/20 08:09 Constitutional: Yes: No Distress, Calm, Cachectic Eyes: Yes: Other (Left facial/orbital ulcerated tumor) HENT: Yes: Other Cardiovascular: Yes: Regular Rate and Rhythm Respiratory: Yes: Regular, CTA Bilaterally, Mechanically Ventilated Gastrointestinal: Yes: Normal Bowel Sounds, Soft Renal/: Yes: Carrizales Present Extremities: Yes: Other (contracted) Edema: No Peripheral Pulses WNL: Yes Integumentary: Yes: Pressure Ulcer (unstageable Left heel + Stage II cocegeal) Neurological: Yes: Pre-Existing Deficit Labs: CBC, BMP 07/14/20 05:30 07/14/20 05:30 Problem List - Problems (1) Hypernatremia Assessment/Plan: -Resolved -Continue IVF 1/2 NS @ 125 cc/hr Problems reviewed: Yes Code(s): E87.0 - HYPEROSMOLALITY AND HYPERNATREMIA (2) Lactic acidosis Assessment/Plan: -resolved -Continue IV meropenm Problems reviewed: Yes Code(s): E87.2 - ACIDOSIS (3) PEG (percutaneous endoscopic gastrostomy) adjustment/replacement/removal Assessment/Plan: -replaced in ER, confirmed placement with KUB with contrast -Hold feeding for now due to the acuity Problems reviewed: Yes Code(s): Z43.1 - ENCOUNTER FOR ATTENTION TO GASTROSTOMY (4) Pneumonia Assessment/Plan: -CXR 07/13/20: Left patchy infiltrate -ID consult -Afebrile -IV meropenem -SC: P aerugenosa -Pulmonary on board -COVID 19 PCR pending Problems reviewed: Yes Code(s): J18.9 - PNEUMONIA, UNSPECIFIED ORGANISM (5) Sepsis Assessment/Plan: -as above -Maintain MAP >65, if consistently below would initiated pressors Problems reviewed: Yes Code(s): A41.9 - SEPSIS, UNSPECIFIED ORGANISM (6) Squamous cell carcinoma Assessment/Plan: -End stage, poor prognosis -Xeroform dressing on the ulcerated region of the wound Problems reviewed: Yes Code(s): FPH0758 - (7) Bacteremia Assessment/Plan: -BC preliminary negative -ID consult appreciated -Continue IV meropenem for now Problems reviewed: Yes Code(s): R78.81 - BACTEREMIA Assessment/Plan See problem list Palliative care consult
--- NOTE | 2020-07-14 08:46 | CONSULT ---
- Consultation REQUESTING PROVIDER: Norm WONG CONSULT REQUEST: We have been asked to surgically evaluate this patient for " facial wound; SCC " Hospitalist:Jared López HISTORY OF PRESENT ILLNESS: SANJU who is a 54 y/o male w/MTS and locally invasive SCC of the oral cavity a/p # combined tx. failures; he was xferred her from a NH for " sepsis " and a ? dislodged GT as obtained from the hx. PMHx: reviewed PSHx: reviewed Home Medications Medication Instructions Recorded Acetaminophen 325 mg PO QID PRN 07/13/20 Cholecalciferol (Vitamin D3) 2.5 ml GT DAILY 07/13/20 [Vitamin D3 -] Ertapenem Sodium [Invanz] 1 gm IJ DAILY 07/13/20 Erythromycin 0.5% Eye Ointment 1 applic OS Q4H 07/13/20 [Erythromycin 0.5% Eye Ointment -] Famotidine [Pepcid] 2 ml PO Q12H 07/13/20 Heparin - 5,000 units IJ Q8H 07/13/20 Ipratropium 0.02% Nebulizer 2.5 ml NEB Q6H 07/13/20 [Atrovent 0.02% Nebulizer -] Metoprolol Tartrate 25 mg PO Q6H 07/13/20 Miconazole Nitrate [Miconazole 1 applic TP BID 07/13/20 Nitrate -] Nystatin Cream [Mycostatin Cream -] 1 applic TP BID 07/13/20 Oxycodone HCl [Roxicodone] 1 tablet PO Q8H 07/13/20 metroNIDAZOLE 0.75% GEL [Metrogel 1 appful TP Q12H 07/13/20 0.75% Gel -] oxyCODONE HCL [Oxycodone HCl] 5 ml PO QID 07/13/20 Allergies Allergy/AdvReac Type Severity Reaction Status Date / Time No Known Allergies Allergy Verified 07/13/20 05:16 REVIEW OF SYSTEMS: reviewed from the chart; unable to provide info PHYSICAL EXAM: GENERAL: Intubated on vent in ICU HEAD: Normal with no signs of trauma. EYES:left eye/orbit encased in tumor ABDOMEN: Soft, nontender, not distended, normoactive bowel sounds, no guarding, no rebound, no masses. No organomegaly. GT in place MUSCULOSKELETAL: contracted. UPPER EXTREMITIES: 2+ pulses, warm, well-perfused. No cyanosis. Cap refill <2 seconds. No peripheral edema. LOWER EXTREMITIES: 2+ pulses, warm, well-perfused. No calf tenderness. No peripheral edema. SKIN: Extensive tumor involvement of the face/neck Vital Signs Temperature 98.6 F 07/14/20 07:00 Pulse Rate 87 07/14/20 08:09 Respiratory Rate 18 07/14/20 08:09 Blood Pressure 89/58 L 07/14/20 07:00 O2 Sat by Pulse Oximetry (%) 100 07/14/20 08:09 Lab Results WBC 10.6 K/mm3 (4.0-10.0) H 07/14/20 05:30 RBC 2.83 M/mm3 (4.00-5.60) L 07/14/20 05:30 Hgb 8.0 GM/dL (11.7-16.9) L 07/14/20 05:30 Hct 25.4 % (35.4-49) L 07/14/20 05:30 MCV 89.5 fl (80-96) 07/14/20 05:30 MCHC 31.7 g/dl (32.0-35.9) L 07/14/20 05:30 RDW 17.2 % (11.9-15.9) H 07/14/20 05:30 Plt Count 308 K/MM3 (134-434) 07/14/20 05:30 INR 1.12 (0.83-1.09) H 07/14/20 05:30 Sodium 143 mmol/L (136-145) 07/14/20 05:30 Potassium 4.5 mmol/L (3.5-5.1) 07/14/20 05:30 Chloride 116 mmol/L (98-107) H 07/14/20 05:30 Carbon Dioxide 21 mmol/L (21-32) 07/14/20 05:30 Anion Gap 7 MMOL/L (8-16) L 07/14/20 05:30 BUN 33.9 mg/dL (7-18) H 07/14/20 05:30 Creatinine 1.3 mg/dL (0.55-1.3) 07/14/20 05:30 Random Glucose 54 mg/dL (74-106) L 07/14/20 05:30 Calcium 7.8 mg/dL (8.5-10.1) L 07/14/20 05:30 Imaging and w/u to date reviewed IMP: Metastatic and locally advanced Head and Neck SCC PLAN: Advise comfort/palliative care; saline dressings or Xerform can be applied to wounds as needed to prevent dessication of the tissue leading to bleeding. Lenny Douglas MD FACS
[2020-07-14] MEDS ORDERED: MEROPENEM 1 GM VIAL (RESTRICTED TO ID) IVPB ONE (09:26)
[2020-07-14] MEDS ORDERED: DEXTROSE 5%-WATER 100 ML IVPB ONE (09:26)
[2020-07-14] MEDS: PANTOPRAZOLE SODIUM 40 MG VIAL IVPUSH SCH (09:30)
[2020-07-14] MEDS: HEPARIN NA (PORCINE) 5,000 UNITS/ML 1ML VIAL SQ SCH (09:30)
[2020-07-14] MEDS: MEROPENEM 1 GM in DEXTROSE 5%-WATER 100 ML IVPB SCH (09:30)
[2020-07-14] MEDS: MUPIROCIN 2% TOPICAL OINTMENT FOR DECOLONIZATION NS SCH (09:31)
[2020-07-14] MEDS: SODIUM CHLORIDE 0.45% 1,000 ML IV SCH (09:31)
--- NOTE | 2020-07-14 10:58 | PN ---
Teaching Attending Note Name of Resident: Larry Giancarlo ATTENDING PHYSICIAN STATEMENT I saw and evaluated the patient. I reviewed the resident's note and discussed the case with the resident. I agree with the resident's findings and plan as documented. SUBJECTIVE: Patient seen and examined in the ICU. AC Mode of vent. Vented, awake but not following commands. Marginal hemodynamics but remains fluid responsive. OBJECTIVE: Intake & Output 07/11/20 07/12/20 07/13/20 07/14/20 23:59 23:59 23:59 23:59 Intake Total 2575 1975 Output Total 400 500 Balance 2175 1475 Weight 80 lb 0.445 oz 80 lb 14.554 oz Last Vital Signs Temp Pulse Resp BP Pulse Ox 98.6 F 87 18 89/58 L 100 07/14/20 07:00 07/14/20 08:09 07/14/20 08:09 07/14/20 07:00 07/14/20 08:09 Active Medications Acetaminophen (Tylenol Oral Solution -) 650 mg PO Q4H PRN PRN Reason: FEVER Chlorhexidine Gluconate (Hibiclens For Decolonization -) 1 applic TP HS [facility] Last Admin: 07/13/20 22:00 Dose: 1 applic Documented by: Heparin Sodium (Porcine) (Heparin -) 5,000 unit SQ BID [facility] Last Admin: 07/14/20 09:30 Dose: 5,000 unit Documented by: Sodium Chloride (1/2 Normal Saline) 1,000 mls @ 125 mls/hr IV ASDIR [facility] Last Admin: 07/14/20 09:31 Dose: 125 mls/hr Documented by: Meropenem 1 gm/ Dextrose 100 mls @ 200 mls/hr IVPB BID [facility] Last Admin: 07/14/20 09:30 Dose: 200 mls/hr Documented by: Sodium Chloride (1/2 Normal Saline) 500 mls @ 500 mls/hr IV [facility] Last Admin: 07/14/20 03:15 Dose: 500 mls/hr Documented by: Mupirocin (Bactroban Ointment (For Decolonization) -) 1 applic NS BID [facility] Stop: 07/18/20 09:59 Last Admin: 07/14/20 09:31 Dose: 1 applic Documented by: Pantoprazole Sodium (Protonix Iv) 40 mg IVPUSH DAILY [facility] Last Admin: 07/14/20 09:30 Dose: 40 mg Documented by: Gen: vented, awake Heart: RRR Lung: decreased breath sounds at the bases Abd: soft, nontender Ext: no edema Laboratory Results - last 24 hr 07/13/20 07/13/20 07/14/20 15:25 15:25 05:26 WBC RBC Hgb Hct MCV MCH MCHC RDW Plt Count MPV Absolute Neuts (auto) Neutrophils % Lymphocytes % Monocytes % Eosinophils % Basophils % Nucleated RBC % PT with INR INR Sodium 149 H Potassium 4.5 Chloride 118 H Carbon Dioxide 24 Anion Gap 7 L BUN 41.2 H Creatinine 1.3 Est GFR (CKD-EPI)AfAm 71.19 Est GFR (CKD-EPI)NonAf 61.43 POC Glucometer 54 Random Glucose 78 Lactic Acid 2.0 Calcium 8.1 L Phosphorus Magnesium Total Bilirubin AST ALT Alkaline Phosphatase Troponin I < 0.02 Total Protein Albumin Random Vancomycin 07/14/20 07/14/20 07/14/20 05:30 05:30 05:30 WBC 10.6 H RBC 2.83 L Hgb 8.0 L Hct 25.4 L MCV 89.5 MCH 28.3 MCHC 31.7 L RDW 17.2 H Plt Count 308 MPV 9.5 Absolute Neuts (auto) 8.7 H Neutrophils % 81.6 Lymphocytes % 8.5 Monocytes % 4.5 Eosinophils % 4.8 H Basophils % 0.6 Nucleated RBC % 0 PT with INR 13.20 H INR 1.12 H Sodium Potassium Chloride Carbon Dioxide Anion Gap BUN Creatinine Est GFR (CKD-EPI)AfAm Est GFR (CKD-EPI)NonAf POC Glucometer Random Glucose Lactic Acid Calcium Phosphorus Magnesium Total Bilirubin AST ALT Alkaline Phosphatase Troponin I Total Protein Albumin Random Vancomycin 13.4 07/14/20 07/14/20 05:30 05:30 WBC RBC Hgb Hct MCV MCH MCHC RDW Plt Count MPV Absolute Neuts (auto) Neutrophils % Lymphocytes % Monocytes % Eosinophils % Basophils % Nucleated RBC % PT with INR INR Sodium 143 Potassium 4.5 Chloride 116 H Carbon Dioxide 21 Anion Gap 7 L BUN 33.9 H Creatinine 1.3 Est GFR (CKD-EPI)AfAm 71.19 Est GFR (CKD-EPI)NonAf 61.43 POC Glucometer Random Glucose 54 L Lactic Acid 1.6 Calcium 7.8 L Phosphorus 4.2 Magnesium 2.3 Total Bilirubin 0.4 AST 16 ALT 11 L Alkaline Phosphatase 112 Troponin I Total Protein 6.2 L Albumin 1.0 L Random Vancomycin ASSESSMENT AND PLAN: r/o Pneumonia vs Soft Tissue Infection Severe Sepsis Acute Kidney Injury Lactic Acidosis Recent Klebsiella Bacteremia Locally Advanced Facial Squamous Cell Ca Chronic Respiratory Failure Hypernatremia Anemia - Increase IVF resuscitation - IV antibiotics - monitor urine output, creatinine - continue volume assist control - Enteral feeds - DVT/GI prophylaxis - Need to discuss further GOC with family - Can monitor on the vent floor if hemodynamics remain stable Dr Onofre
[2020-07-14] MEDS ORDERED: LACTATED RINGERS SOLUTION 1000 ML INFUS.BAG IV ONE ×2 (11:30→20:39)
--- NOTE | 2020-07-14 11:43 | PN ---
Progress Note, Physician Chief Complaint: Dislodged G tube Fever Squamous cell ca Bacteremia Sepsis Anemia Hypernatremia History of Present Illness: 54 year old male came in to [facility] from [facility] for dislodged G tube. Pt also with PICC line with IV Ivanz for Klebsiella bacteremia. 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 Pt treated with Chemo carboplatin/pacltaxel/cetuximab x 2 cycles due to poor tolerance-last cycle 03/18/20- complicated by hospitalization from 03/04/20- 05/16/20 during which he was treated for profusely bleeding tumor requiring IR embolization on 04/27/20 of an extra carotid branch. Pt also received palliative RT x 2 courses completed 04/21/20. Pt was then dc'd to [facility] with PICC and IV abx. Pt then developed recurrent Pneumonia w/ MSSA, Citrobacter Acinetobacter re- admitted on 06/24/20-06/29/20 to SICU- tx w/ IV Vanco, Zosyn + Azithro + Pressors which were dc'd shortly after. Pt was transfused PRBC fro anemia 2/2 to bleeding tumor. Pt was also + for VRE. Old PICC was removed on 06/24/20 due to + MDR Kleb (PICC tip)- reinserted 07/02/20 During his stay at [facility] Follwing tests were done: Tracheoscopy: Clear trachea CT head/face/neck 06/24/20-Left multi spatial mass unchanged from previous CT done on 06/03/20 CT chest 06/24/20- Small BL R>L pleural effusions, atelectasis vs superimposed pneumonia Last NELL COV 2-06/24/20 not detected Previous noted GOC discussed with family wants everything done despite knowing the prognosis is poor. Pt is not a candidate of further oncology treatments 2/2 to prognosis, inability to tolerate and fragile state - Current Medication List Current Medications: Active Medications Acetaminophen (Tylenol Oral Solution -) 650 mg PO Q4H PRN PRN Reason: FEVER Chlorhexidine Gluconate (Hibiclens For Decolonization -) 1 applic TP HS [facility] Last Admin: 07/13/20 22:00 Dose: 1 applic Documented by: Heparin Sodium (Porcine) (Heparin -) 5,000 unit SQ BID [facility] Last Admin: 07/14/20 09:30 Dose: 5,000 unit Documented by: Sodium Chloride (1/2 Normal Saline) 1,000 mls @ 125 mls/hr IV ASDIR [facility] Last Admin: 07/14/20 09:31 Dose: 125 mls/hr Documented by: Meropenem 1 gm/ Dextrose 100 mls @ 200 mls/hr IVPB BID [facility] Last Admin: 07/14/20 09:30 Dose: 200 mls/hr Documented by: Sodium Chloride (1/2 Normal Saline) 500 mls @ 500 mls/hr IV ASDIR [facility] Last Admin: 07/14/20 03:15 Dose: 500 mls/hr Documented by: Lactated Ringer's (Lactated Ringers Solution) 2,000 ml IV NOW ONE Stop: 07/14/20 11:31 Mupirocin (Bactroban Ointment (For Decolonization) -) 1 applic NS BID [facility] Stop: 07/18/20 09:59 Last Admin: 07/14/20 09:31 Dose: 1 applic Documented by: Pantoprazole Sodium (Protonix Iv) 40 mg IVPUSH DAILY [facility] Last Admin: 07/14/20 09:30 Dose: 40 mg Documented by: - Objective Vital Signs: Vital Signs Temperature 98.6 F 07/14/20 07:00 Pulse Rate 87 07/14/20 08:09 Respiratory Rate 20 07/14/20 11:31 Blood Pressure 89/58 L 07/14/20 07:00 O2 Sat by Pulse Oximetry (%) 100 07/14/20 11:31 Constitutional: Yes: No Distress, Calm, Cachectic Eyes: Yes: Other (Left facial ulcerated tumor) Cardiovascular: Yes: Regular Rate and Rhythm Respiratory: Yes: Regular, CTA Bilaterally, Mechanically Ventilated Gastrointestinal: Yes: Soft, Hypoactive Bowel Sounds Genitourinary: Yes: Carrizales Present Extremities: Yes: Other (contracted) Edema: No Peripheral Pulses WNL: Yes Integumentary: Yes: Pressure Ulcer (Left heel unstageable + stage II cocegeal ulcer) Wound/Incision: Yes: Dressing Dry and Intact Labs: CBC, BMP 07/14/20 05:30 07/14/20 05:30 INR, PTT INR 1.12 (0.83-1.09) H 07/14/20 05:30 Problem List - Problems (1) Hypernatremia Assessment/Plan: -Resolved -Continue IVF 1/2 NS @ 125 cc/hr Problems reviewed: Yes Code(s): E87.0 - HYPEROSMOLALITY AND HYPERNATREMIA (2) Lactic acidosis Assessment/Plan: -resolved -Continue IV meropenm Problems reviewed: Yes Code(s): E87.2 - ACIDOSIS (3) PEG (percutaneous endoscopic gastrostomy) adjustment/replacement/removal Assessment/Plan: -replaced in ER, confirmed placement with KUB with contrast -Hold feeding for now due to the acuity Problems reviewed: Yes Code(s): Z43.1 - ENCOUNTER FOR ATTENTION TO GASTROSTOMY (4) Pneumonia Assessment/Plan: -CXR 07/13/20: Left patchy infiltrate -Mech vent -Not a candidate for weaning at this time -ID consult -Afebrile -IV meropenem -SC: P aerugenosa -Pulmonary on board -COVID 19 PCR pending Problems reviewed: Yes Code(s): J18.9 - PNEUMONIA, UNSPECIFIED ORGANISM (5) Sepsis Assessment/Plan: -as above -Maintain MAP >65, if consistently below would initiated pressors Problems reviewed: Yes Code(s): A41.9 - SEPSIS, UNSPECIFIED ORGANISM (6) Squamous cell carcinoma Assessment/Plan: -End stage, poor prognosis -Xeroform dressing on the ulcerated region of the wound Problems reviewed: Yes Code(s): CHH5592 - (7) Bacteremia Assessment/Plan: -BC preliminary negative -ID consult appreciated -Continue IV meropenem for now Problems reviewed: Yes Code(s): R78.81 - BACTEREMIA (8) Cachexia Problems reviewed: Yes Code(s): R64 - CACHEXIA (9) Severe malnutrition Problems reviewed: Yes Code(s): E43 - UNSPECIFIED SEVERE PROTEIN-CALORIE MALNUTRITION Assessment/Plan See problem list Palliative care consult
--- NOTE | 2020-07-14 12:40 | PN ---
Progress Note, Physician History of Present Illness: Pt resting comfortable on trach. Able to arouse but unable to communicate. Overnight, BP dropped to MAP of 63. Given 500mL fluids to raise MAP to 75. - Current Medication List Current Medications: Active Medications Acetaminophen (Tylenol Oral Solution -) 650 mg PO Q4H PRN PRN Reason: FEVER Chlorhexidine Gluconate (Hibiclens For Decolonization -) 1 applic TP HS [facility] Last Admin: 07/13/20 22:00 Dose: 1 applic Documented by: Heparin Sodium (Porcine) (Heparin -) 5,000 unit SQ BID [facility] Last Admin: 07/14/20 09:30 Dose: 5,000 unit Documented by: Sodium Chloride (1/2 Normal Saline) 1,000 mls @ 125 mls/hr IV ASDIR [facility] Last Admin: 07/14/20 09:31 Dose: 125 mls/hr Documented by: Meropenem 1 gm/ Dextrose 100 mls @ 200 mls/hr IVPB BID [facility] Last Admin: 07/14/20 09:30 Dose: 200 mls/hr Documented by: Sodium Chloride (1/2 Normal Saline) 500 mls @ 500 mls/hr IV ASDIR [facility] Last Admin: 07/14/20 03:15 Dose: 500 mls/hr Documented by: Mupirocin (Bactroban Ointment (For Decolonization) -) 1 applic NS BID [facility] Stop: 07/18/20 09:59 Last Admin: 07/14/20 09:31 Dose: 1 applic Documented by: Pantoprazole Sodium (Protonix Iv) 40 mg IVPUSH DAILY [facility] Last Admin: 07/14/20 09:30 Dose: 40 mg Documented by: - Objective Vital Signs: Vital Signs Temperature 98.6 F 07/14/20 07:00 Pulse Rate 87 07/14/20 08:09 Respiratory Rate 20 07/14/20 11:31 Blood Pressure 89/58 L 07/14/20 07:00 O2 Sat by Pulse Oximetry (%) 100 07/14/20 11:31 Constitutional: Yes: No Distress, Calm, Anxious. No: Well Nourished HENT: Yes: Other (SCC carcinoma locally invading left side of face) Cardiovascular: Yes: Regular Rate and Rhythm, S1, S2. No: Bradycardia, Tachycardia Respiratory: Yes: Regular, CTA Bilaterally, Other (tracheostomy) Gastrointestinal: Yes: Normal Bowel Sounds, Soft, Other (PEG tube) Genitourinary: Yes: Nails Present. No: Bladder Distention, Hematuria Neurological: Yes: Alert. No: Oriented Labs: CBC, BMP 07/14/20 05:30 07/14/20 05:30 INR, PTT INR 1.12 (0.83-1.09) H 07/14/20 05:30 Impression/Plan Impression/Plan: ASSESSMENT/PLAN: 54-year-old male with PMHx of RA & large invasive squamous cell carcinoma, presented to the ED with dislodged peg tube, was also found to be hypotensive and febrile. Admitted to ICU for septic shock, likely 2/2 infection of facial wound/SCC, vs other infectious causes (picc, nails, trach, peg) Neuro - awake - baseline nonverbal Pulm - possible L patchy infiltrate, likely 2/2 PNA - sputum cultures: pseudomonas - on ventilator - maintain sat > 93% Cardio - hypotensive, patient baseline 90/60s - getting IVF - EF 55-60 % (02/2020) Heme/Onc - hx stage 4 oral cavily SCC involving L orbit s/p IR embolization at [facility] s/p multi drug chemo s/p palliative radiation in March medical records in chart - hx anemia ID - Septic (PICC vs Trach vs Nails vs PEG vs Facial SCC) picc line currently on ertapenem - Blood Culture- pending - Urine Culture- pending - Sputum Culture- grew Pseudomonas - hx of MDR klebsiella from picc line - hx of MSSA, citrobacter, acinetobacter - DC Enrtapenem - Meropenem (1g) per ID - Vancomycin (1g) per ID - 2L LR Bolus Renal - elevated BUN/Cr - [facility] labs showed 32/1.26 - possibly RAJAT from poor perfusion 2/2 hypovolemia - Dr. Phelps consulted - monitor I&Os - 2L LR Bolus FEN/GI - peg dislodged and replaced in ED - monitor and replete electrolytes - IVF - NPO for now DVT PPX - Sq heparin TID GI PPX - protonix iv daily Dispo: Transfered to [facility] per family request. Pt accepted at [facility] per conversation between Dr. Onofre and [facility] attending. Visit type - Emergency Visit Emergency Visit: Yes ED Registration Date: 07/13/20 Care time: The patient presented to the Emergency Department on the above date and was hospitalized for further evaluation of their emergent condition. - New Patient This patient is new to me today: Yes Date on this admission: 07/15/20 - Critical Care Critical Care patient: Yes Total Critical Care Time (in minutes): 36 Critical Care Statement: The care of this patient involved high complexity decision making to prevent further life threatening deterioration of the patient's condition and/or to evaluate & treat vital organ system(s) failure or risk of failure. ATTENDING PHYSICIAN STATEMENT I saw and evaluated the patient. I reviewed the resident's note and discussed the case with the resident. I agree with the resident's findings and plan as documented. SUBJECTIVE: OBJECTIVE: ASSESSMENT AND PLAN:
--- NOTE | 2020-07-14 13:20 | PN ---
Progress Note (short form) - Note Progress Note: more awake and alert Vital Signs Period Temp Pulse Resp BP Sys/Britt Pulse Ox Last 24 Hr 98 F-98.6 F 76-89 12-22 63-89/31-68 100-100 trach to vent no drainage from face mass, open wound cor-rrr lungs decreased bs at bases abd soft, +GT ext no edema CBC, BMP 07/14/20 05:30 07/14/20 05:30 Microbiology 07/13/20 12:10 Sputum - Endotrachea Suction/Ventilator Gram Stain - Final 07/13/20 12:10 Sputum - Endotrachea Suction/Ventilator Sputum Culture - Preliminary Presumptive Ps Aeruginosa 07/13/20 06:20 Urine - Urine - Catheterized Urine Culture - Final NO GROWTH OBTAINED 07/13/20 05:40 Blood - Peripheral Venous Blood Culture - Preliminary NO GROWTH OBTAINED AFTER 24 HOURS, INCUBATION TO CONTINUE FOR 4 DAYS. 07/13/20 05:40 Blood - Peripheral Venous Blood Culture - Preliminary NO GROWTH OBTAINED AFTER 24 HOURS, INCUBATION TO CONTINUE FOR 4 DAYS. a/p Squamous cell ca of the oral cavity and orbit chronic resp failure possible pneumonia recent MDR kelb bacteremia overall prognosis grim continue meropenem f/u cultures d/c vancomycin Problem List - Problems (1) Squamous cell carcinoma Code(s): [id number] - (2) PEG (percutaneous endoscopic gastrostomy) adjustment/replacement/removal Code(s): Z43.1 - ENCOUNTER FOR ATTENTION TO GASTROSTOMY (3) Pneumonia Code(s): J18.9 - PNEUMONIA, UNSPECIFIED ORGANISM (4) Bacteremia due to Klebsiella pneumoniae Code(s): R78.81 - BACTEREMIA; B96.1 - KLEBSIELLA PNEUMONIAE THE CAUSE OF DISEASES CLASSD ELSWHR
[2020-07-14] MEDS ORDERED: VANCOMYCIN 750 MG in DEXTROSE 5%-WATER - 150 ML IVPB SCH (13:30)
[2020-07-14] MEDS ORDERED: VANCOMYCIN 750 MG in DEXTROSE 5%-WATER - 250 ML IVPB ONE (13:45)
--- NOTE | 2020-07-14 15:50 | PN ---
Progress Note, Physician History of Present Illness: Pt seen and examined at bedside. He remains in the ICU. - Current Medication List Current Medications: Active Medications Acetaminophen (Tylenol Oral Solution -) 650 mg PO Q4H PRN PRN Reason: FEVER Chlorhexidine Gluconate (Hibiclens For Decolonization -) 1 applic TP HS [facility] Last Admin: 07/13/20 22:00 Dose: 1 applic Documented by: Heparin Sodium (Porcine) (Heparin -) 5,000 unit SQ BID [facility] Last Admin: 07/14/20 09:30 Dose: 5,000 unit Documented by: Sodium Chloride (1/2 Normal Saline) 1,000 mls @ 125 mls/hr IV ASDIR [facility] Last Admin: 07/14/20 09:31 Dose: 125 mls/hr Documented by: Meropenem 1 gm/ Dextrose 100 mls @ 200 mls/hr IVPB BID [facility] Last Admin: 07/14/20 09:30 Dose: 200 mls/hr Documented by: Sodium Chloride (1/2 Normal Saline) 500 mls @ 500 mls/hr IV ASDIR [facility] Last Admin: 07/14/20 03:15 Dose: 500 mls/hr Documented by: Vancomycin HCl 750 mg/ (Dextrose) 150 mls @ 150 mls/hr IVPB Q24H [facility]; Protocol Mupirocin (Bactroban Ointment (For Decolonization) -) 1 applic NS BID [facility] Stop: 07/18/20 09:59 Last Admin: 07/14/20 09:31 Dose: 1 applic Documented by: Pantoprazole Sodium (Protonix Iv) 40 mg IVPUSH DAILY [facility] Last Admin: 07/14/20 09:30 Dose: 40 mg Documented by: - Objective Vital Signs: Vital Signs Temperature 98 F 07/14/20 13:00 Pulse Rate 84 07/14/20 13:00 Respiratory Rate 21 H 07/14/20 15:36 Blood Pressure 87/62 L 07/14/20 13:00 O2 Sat by Pulse Oximetry (%) 100 07/14/20 15:36 Constitutional: Yes: Calm Eyes: Yes: Conjunctiva Clear HENT: Yes: Other (left facial extensive cancer) Neck: Yes: Supple Cardiovascular: Yes: S1, S2 Respiratory: Yes: Mechanically Ventilated Gastrointestinal: Yes: Soft Genitourinary: Yes: Carrizales Present Musculoskeletal: Yes: Muscle Weakness, Other (contracted) Edema: No Neurological: Yes: Lethargy Labs: CBC, BMP 07/14/20 05:30 07/14/20 05:30 INR, PTT INR 1.12 (0.83-1.09) H 07/14/20 05:30 Problem List - Problems (1) Bacteremia due to Klebsiella pneumoniae Code(s): R78.81 - BACTEREMIA; B96.1 - KLEBSIELLA PNEUMONIAE THE CAUSE OF DISEASES CLASSD ELSWHR (2) Hypernatremia Code(s): E87.0 - HYPEROSMOLALITY AND HYPERNATREMIA (3) PEG (percutaneous endoscopic gastrostomy) adjustment/replacement/removal Code(s): Z43.1 - ENCOUNTER FOR ATTENTION TO GASTROSTOMY (4) Squamous cell carcinoma Code(s): [id number] - Assessment/Plan Current Medications Generic Name Dose Route Start Last Admin Trade Name Freq PRN Reason Stop Dose Admin Acetaminophen 650 mg 07/13/20 08:08 Tylenol Oral Solution - PO Q4H PRN FEVER Chlorhexidine Gluconate 1 applic 07/13/20 22:00 07/13/20 22:00 Hibiclens For Decolonization - TP 1 applic HS [facility] Administration Heparin Sodium (Porcine) 5,000 unit 07/13/20 10:00 07/14/20 09:30 Heparin - SQ 5,000 unit BID [facility] Administration Sodium Chloride 1,000 mls @ 125 mls/hr 07/13/20 08:31 07/14/20 09:31 1/2 Normal Saline IV 125 mls/hr ASDIR [facility] Administration Meropenem 1 gm/ Dextrose 100 mls @ 200 mls/hr 07/13/20 10:15 07/14/20 09:30 IVPB 200 mls/hr BID [facility] Administration Sodium Chloride 500 mls @ 500 mls/hr 07/14/20 03:15 07/14/20 03:15 1/2 Normal Saline IV 500 mls/hr ASDIR [facility] Administration Vancomycin HCl 750 mg/ 150 mls @ 150 mls/hr 07/14/20 13:30 Dextrose IVPB Q24H [facility] Protocol Mupirocin 1 applic 07/13/20 10:00 07/14/20 09:31 Bactroban Ointment (For Decolonization) - NS 07/18/20 09:59 1 applic BID [facility] Administration Pantoprazole Sodium 40 mg 07/13/20 10:00 07/14/20 09:30 Protonix Iv IVPUSH 40 mg DAILY [facility] Administration Impression 1. natalie 2. hypernatremia 3. recent kleb bacteremia 4. squamous cell cancer 5. lactic acidosis 6. resp failure on trache Plan - can change fluids to saline - cont to monitor renal function - sodium level is improving - monitor bp - follow cultures - vent support
[2020-07-14] MEDS ORDERED: PT OWN MED DRAWER 7, Y5N ONE (15:59)
[2020-07-14] MEDS ORDERED: SODIUM CHLORIDE 1,000 ML IV SCH ×2 (16:00)
[2020-07-14] MEDS ORDERED: LACTATED RINGERS SOLUTION 1,000 ML/1,000 ML INFUS.BAG IV SCH (16:00)
--- NOTE | 2020-07-14 17:54 | DS ---
Physical Exam: SUBJECTIVE: Patient seen and examined. Pt resting comfortable on trach. Able to arouse but unable to communicate. Overnight, BP dropped to MAP of 63. Given 500mL fluids to raise MAP to 75. OBJECTIVE: Vital Signs Period Temp Pulse Resp BP Sys/Britt Pulse Ox Last 24 Hr 98 F-98.6 F 80-89 12-22 63-89/31-65 100-100 PHYSICAL EXAM GENERAL: Awake, no oriented, non responsive/nonverbal HEAD: Normal with no signs of trauma. EYES: PERRL ENT: Large facial lesion encompassing almost entire left side of face with blood NECK: tach in place LUNGS: on ventilator, harsh inhalation breath sounds appreciated HEART: RRR ABDOMEN: Soft, peg in place, emaciated MUSCULOSKELETAL: extremely emaciated EXTREMITIES: muscle wasting, contracted NEUROLOGICAL: unable to fully assess SKIN: no rashes or lesions noted. LABS Laboratory Results - last 24 hr 07/14/20 07/14/20 07/14/20 05:26 05:30 05:30 WBC 10.6 H RBC 2.83 L Hgb 8.0 L Hct 25.4 L MCV 89.5 MCH 28.3 MCHC 31.7 L RDW 17.2 H Plt Count 308 MPV 9.5 Absolute Neuts (auto) 8.7 H Neutrophils % 81.6 Lymphocytes % 8.5 Monocytes % 4.5 Eosinophils % 4.8 H Basophils % 0.6 Nucleated RBC % 0 PT with INR INR Sodium Potassium Chloride Carbon Dioxide Anion Gap BUN Creatinine Est GFR (CKD-EPI)AfAm Est GFR (CKD-EPI)NonAf POC Glucometer 54 Random Glucose Lactic Acid Calcium Phosphorus Magnesium Total Bilirubin AST ALT Alkaline Phosphatase Total Protein Albumin Random Vancomycin 13.4 07/14/20 07/14/20 07/14/20 05:30 05:30 05:30 WBC RBC Hgb Hct MCV MCH MCHC RDW Plt Count MPV Absolute Neuts (auto) Neutrophils % Lymphocytes % Monocytes % Eosinophils % Basophils % Nucleated RBC % PT with INR 13.20 H INR 1.12 H Sodium 143 Potassium 4.5 Chloride 116 H Carbon Dioxide 21 Anion Gap 7 L BUN 33.9 H Creatinine 1.3 Est GFR (CKD-EPI)AfAm 71.19 Est GFR (CKD-EPI)NonAf 61.43 POC Glucometer Random Glucose 54 L Lactic Acid 1.6 Calcium 7.8 L Phosphorus 4.2 Magnesium 2.3 Total Bilirubin 0.4 AST 16 ALT 11 L Alkaline Phosphatase 112 Total Protein 6.2 L Albumin 1.0 L Random Vancomycin 07/14/20 13:38 WBC RBC Hgb Hct MCV MCH MCHC RDW Plt Count MPV Absolute Neuts (auto) Neutrophils % Lymphocytes % Monocytes % Eosinophils % Basophils % Nucleated RBC % PT with INR INR Sodium Potassium Chloride Carbon Dioxide Anion Gap BUN Creatinine Est GFR (CKD-EPI)AfAm Est GFR (CKD-EPI)NonAf POC Glucometer 71 Random Glucose Lactic Acid Calcium Phosphorus Magnesium Total Bilirubin AST ALT Alkaline Phosphatase Total Protein Albumin Random Vancomycin HOSPITAL COURSE: 54-year-old male with PMHx of RA & large invasive squamous cell carcinoma, involving the left facial structures s/p admission ([facility]) for Klebsiella bacteremia sepsis with PICC line in place (07/02/20) currently on ertapenem. S/p trach & peg 02/2020. Patient was originally being brought to ED for dislodged G- tube but found to have a rectal temperature of greater than 101, and hypotension (79/58). G-tube was replaced at the bedside in ED. CXR showed L patchy infiltrate. Admitted to ICU for septic shock, likely 2/2 infection of facial wound/SCC, vs other infectious causes (picc, nails, trach, peg). Blood culture X2 and urine culture had no growth obtained. Sputum culture grew presumptive pseudomonas aeruginosa. Patient was given vancomycin 750 Q24H and meropenem 1 gm BID. Family wanted patient transferred to [facility] to continue his care. Date of Admission:07/13/20 Date of Discharge: 07/14/20 Discharge Summary Problems reviewed: Yes Reason For Visit: SEPSIS Current Active Problems Bacteremia (Acute) Bacteremia due to Klebsiella pneumoniae (Acute) Cachexia (Acute) Hypernatremia (Acute) Lactic acidosis (Acute) PEG (percutaneous endoscopic gastrostomy) adjustment/replacement/removal (Acute) Pneumonia (Acute) Sepsis (Acute) Severe malnutrition (Acute) Squamous cell carcinoma (Acute) Condition: Fair - Instructions Referrals: Jared López MD [Primary Care Provider] - - Home Medications Comprehensive Discharge Medication List: Ambulatory Orders Acetaminophen 325 mg PO QID PRN 07/13/20 Cholecalciferol (Vitamin D3) [Vitamin D3 -] 2.5 ml GT DAILY 07/13/20 Ertapenem Sodium [Invanz] 1 gm IJ DAILY 07/13/20 Erythromycin 0.5% Eye Ointment [Erythromycin 0.5% Eye Ointment -] 1 applic OS Q4H 07/13/20 Famotidine [Pepcid] 2 ml PO Q12H 07/13/20 Heparin - 5,000 units IJ Q8H 07/13/20 Ipratropium 0.02% Nebulizer [Atrovent 0.02% Nebulizer -] 2.5 ml NEB Q6H 07/13/20 Metoprolol Tartrate 25 mg PO Q6H 07/13/20 Miconazole Nitrate [Miconazole Nitrate -] 1 applic TP BID 07/13/20 Nystatin Cream [Mycostatin Cream -] 1 applic TP BID 07/13/20 Oxycodone HCl [Roxicodone] 1 tablet PO Q8H 07/13/20 metroNIDAZOLE 0.75% GEL [Metrogel 0.75% Gel -] 1 appful TP Q12H 07/13/20 oxyCODONE HCL [Oxycodone HCl] 5 ml PO QID 07/13/20 ATTENDING PHYSICIAN STATEMENT I saw and evaluated the patient. I reviewed the resident's note and discussed the case with the resident. I agree with the resident's findings and plan as documented. SUBJECTIVE: OBJECTIVE: ASSESSMENT AND PLAN:
[2020-07-14 19:38] VITALS: BP 78/59; PULSE 82; TEMP 98.1
[2020-07-15] MEDS ORDERED: VANCOMYCIN 1 GM in D5W (PRE-DOCKED) 1,000 MG/250 ML IVPB SCH (10:00)
== END 2020-07-14 22:15 | disposition short-term general hospital (02) | DRG 720 ==
LOC: JER 04:58 → JERBED 05:30 → JICU 09:58
PROVIDERS: ADMIT Family Medicine; ATTEND Family Medicine
PROC: 5A1945Z Respiratory Ventilation, 24-96 Consecutive Hours (ICD-10-PCS; principal; 2020-07-13)
PROC: 30233N1 Transfusion of Nonautologous Red Blood Cells into Peripheral Vein, Percutaneous Approach (ICD-10-PCS; 2020-07-13)
DX: A41.9 Sepsis, unspecified organism (principal); C44.329 Squamous cell carcinoma of skin of other parts of face; B96.1 Klebsiella pneumoniae [K. pneumoniae] as the cause of diseases classified elsewhere; Z93.1 Gastrostomy status; Z43.1 Encounter for attention to gastrostomy; E87.0 Hyperosmolality and hypernatremia; Z93.0 Tracheostomy status; E87.2 Acidosis; I95.9 Hypotension, unspecified; J96.10 Chronic respiratory failure, unspecified whether with hypoxia or hypercapnia; R65.21 Severe sepsis with septic shock; N17.9 Acute kidney failure, unspecified; R64 Cachexia; J18.9 Pneumonia, unspecified organism; E43 Unspecified severe protein-calorie malnutrition; E86.1 Hypovolemia; D64.9 Anemia, unspecified
CPT/HCPCS: 36415; 71045-TC-FY; 74018-TC-FY; 80048; 80053; 81003; 82962; 83605; 83735; 84100; 84484; 85025; 85610; 85730; 87040; 87070; 87086; 87186; 87205; 93005; 93010; 94002; 99285-25; G0480; J0131; J1644; U0003